=== PATIENT | female | born 1990 | race Caucasian/White ===

== ENCOUNTER 2019-05-18 12:47 | Emergency (ER) | payer OTHER ==
[~2019-05-18] VITALS: Ht 165.1 cm; Wt 86.2 kg
[2019-05-18 13:53] VITALS: Ht 165.1 cm; Wt 86.2 kg
[2019-05-18 16:00] VITALS: BP 1496/83
== END 2019-05-18 16:00 | disposition home or self-care (01) ==
LOC: ED 12:47
DX: F41.9 Anxiety disorder, unspecified (principal)